=== PATIENT | female | born 1985 | race Caucasian/White ===

== ENCOUNTER → 2022-03-16 | Outpatient (CLI) | payer OTHER | LOC: MC.RAD 03-10 10:00 | DX: N64.59 Other signs and symptoms in breast (principal); N63.10 Unspecified lump in the right breast, unspecified quadrant; N63.20 Unspecified lump in the left breast, unspecified quadrant ==

== ENCOUNTER → 2023-06-06 | Outpatient (CLI) | payer OTHER ==
[~2023-06-06] MED LIST: MOTRIN 800800 MG/TAB PO; PERCOCET 325 MG1 TA2 PO; ZOLOFT 25MG25 MG PO
== END ==
LOC: MC.RAD 12:40
DX: Z12.31 Encounter for screening mammogram for malignant neoplasm of breast (principal)